=== PATIENT | female | born 1995 | race Two or more races ===

== ENCOUNTER 2019-08-19 20:16 | Emergency (ER) | payer OTHER ==
[~2019-08-19] VITALS: Ht 154.9 cm; Wt 92.2 kg
[2019-08-19 21:33] VITALS: BP 139/78
--- NOTE | 2019-08-19 21:56 | NUR ---
PT SITTING IN BED, ATTACHED TO MONITORS, WARM BLANKETS PROVIDED. DENIES ANY CURRENT NEEDS OR CONCERNS, VENEER MATCHER STUDENT AT BEDSIDE. CALL LIGHT IN REACH.
[2019-08-19 22:02] LABS: BASOPHILS # (AUTO) 0.11 x10^3/uL (0-0.1); BASOPHILS % (AUTO) 1 % (0-1); EOSINOPHILS # (AUTO) 0.13 x10^3/uL (0-0.4); EOSINOPHILS % (AUTO) 1 % (1-7); LYMPHOCYTES # (AUTO) 3.08 x10^3/uL (1-3.4); LYMPHOCYTES % (AUTO) 28 % (22-44); MD NO; MEAN CORPUSCULAR HEMOGLOBIN 25.5 pg (27.0-34.8); MEAN CORPUSCULAR HGB CONC 33.2 g/dL (32.4-35.8); MEAN CORPUSCULAR VOLUME 76.9 fL (80-100); MEAN PLATELET VOLUME 8.6 fL (7.4-10.4); MONOCYTES # (AUTO) 0.53 x10^3/uL (0.2-0.8); MONOCYTES % (AUTO) 5 % (2-9); NEUTROPHILS # (AUTO) 7.33 x10^3/uL (1.8-6.8); NEUTROPHILS % (AUTO) 66 % (42-75); PLATELET COUNT 308 x10^3/uL (130-400); RED BLOOD COUNT 5.22 x10^6/uL (3.82-5.3); RED CELL DISTRIBUTION WIDTH 13.6 % (9.6-15.2)
[2019-08-19 22:09] LABS: ALBUMIN 3.4 g/dL (3.4-5.0); ANION GAP 7 mmol/L (5-15); CALCIUM 9.4 mg/dL (8.5-10.1); CHLORIDE 108 mmol/L (98-107)
[2019-08-19 22:15] LABS: ALANINE AMINOTRANSFERASE 9 U/L (12-78); ALKALINE PHOSPHATASE 84 U/L (45-117); BILIRUBIN,TOTAL 0.2 mg/dL (0.2-1.0); CREATININE 0.85 mg/dL (0.55-1.02); TOTAL PROTEIN 7.7 g/dL (6.4-8.2)
--- NOTE | 2019-08-19 22:24 | NUR ---
RECEIVED REPORT FROM JUANPABLO NIXON.
[2019-08-19] MEDS ORDERED: ONDANSETRON ODT 4 MG ONE (22:28)
[2019-08-19] MEDS ORDERED: ONDANSETRON ODT 4 MG PO ONE (22:30)
[2019-08-19] MEDS ORDERED: ERYTHROMYCIN OPHTH 0.5%, 1GM RIGHTEYE ONE (22:30)
--- NOTE | 2019-08-19 22:54 | NUR ---
RE-EVALUATION DONE. PATIENT DISCHARGED WITH INSTRUCTION. VERBALIZED UNDERSTANDING.
== END 2019-08-19 22:59 | disposition home or self-care (01) ==
LOC: ED 22:50
DX: G44.209 Tension-type headache, unspecified, not intractable (principal); F41.1 Generalized anxiety disorder; R00.2 Palpitations; H53.8 Other visual disturbances
CPT/HCPCS: 36415; 80053; 84443; 84703; 85025; 93005; 99284